=== PATIENT | female | born 2000 | race American Indian/Alaskan Native ===

== ENCOUNTER 2021-01-02 10:59 | Emergency (ER) | payer OTHER ==
[2021-01-02] MEDS ORDERED: Alum Hydroxide/Mag Hydroxide 15 ML, Lidocaine 2% 15 ML PO ONE ×4 (11:22→12:02)
--- NOTE | 2021-01-02 11:26 | EDM.PDOC ---
ED HPI GENERAL MEDICAL PROBLEM - General Chief Complaint: Abdominal Pain Stated Complaint: STOMACH ACHE Time Seen by Provider: 01/02/21 11:19 Source of Information: Reports: Patient History Limitations: Reports: No Limitations - History of Present Illness INITIAL COMMENTS - FREE TEXT/NARRATIVE: Patient awoke this morning with epigastric pain associated with N/V. Emesis was biliary, denies hematemesis. Patient admits to taking eight Midol tablets all at once at 12 midnoc in an effort to relieve menstrual cramps. She denies recent alcohol consumption. No prior history of abdominal surgeries. Onset: Today Location: Reports: Abdomen Severity: Mild ABDOMEN Pain Score (Numeric/FACES): 6 - Related Data Allergies Allergy/AdvReac Type Severity Reaction Status Date / Time No Known Allergies Allergy Verified 01/02/21 11:19 Home Meds: Home Meds Pantoprazole Sodium [Protonix] 40 mg PO DAILY #14 tablet. 01/02/21 [Rx] ondansetron HCL [Zofran] 4 mg PO Q8H #10 tablet 01/02/21 [Rx] Past Medical History - Past Health History Medical/Surgical History: Denies Medical/Surgical History Social & Family History - Tobacco Use Tobacco Use Status *Q: Current Every Day Tobacco User Tobacco Use Within Last Twelve Months: Cigarettes - Alcohol Use Alcohol Use History: Yes Alcohol Use Frequency: Rarely ED ROS GENERAL - Review of Systems Review Of Systems: Comprehensive ROS is negative, except as noted in HPI. ED EXAM, GI/ABD - Physical Exam Exam: See Below Exam Limited By: No Limitations General Appearance: Alert, WD/WN, No Apparent Distress Throat/Mouth: No Airway Compromise Head: Atraumatic, Normocephalic Neck: Full Range of Motion Respiratory/Chest: No Respiratory Distress, Lungs Clear, Normal Breath Sounds Cardiovascular: Regular Rate, Rhythm, No Murmur GI/Abdominal Exam: Normal Bowel Sounds, Soft, Tender (epigastric and LLQ) Back Exam: Full Range of Motion Extremities: Normal Range of Motion Neurological: Alert, Normal Cognition Psychiatric: Normal Affect, Normal Mood Skin Exam: Warm, Dry, Intact Course - Vital Signs Last Recorded V/S: Last Vital Signs Temp 37.0 C 01/02/21 11:00 Pulse 88 01/02/21 11:00 Resp 18 01/02/21 11:00 BP 123/64 01/02/21 11:00 Pulse Ox 100 02/13/21 11:00 - Orders/Labs/Meds Labs: Laboratory Tests 01/02/21 01/02/21 01/02/21 Range/Units 11:13 11:13 11:32 WBC 7.7 (3.0-10.3) x10-3/uL RBC 4.11 (3.60-5.20) x10(6)uL Hgb 11.7 (11.4-15.5) g/dL Hct 36.5 (34.2-48.2) % MCV 89.0 (76.7-100.5) fL MCH 28.4 (23.9-33.9) pg MCHC 32.0 (31.9-34.8) g/dL RDW 15.7 (12.3-16.5) % Plt Count 276 (151-488) x10(3)uL MPV 8.9 (7.1-12.4) fL Neut % (Auto) 82.3 H (30.8-76.2) % Lymph % (Auto) 11.3 L (18.4-52.1) % [place] % (Auto) 5.2 (4.4-15.7) % Eos % (Auto) 0.8 (0.6-8.1) % Baso % (Auto) 0.4 (0.2-1.5) % Neut # (Auto) 6.3 (1.5-6.3) x10-3/uL Lymph # (Auto) 0.9 L (1.0-4.4) x10-3/uL [place] # (Auto) 0.4 (0.3-1.0) x10-3/uL Eos # (Auto) 0.1 (0.0-0.8) x10-3/uL Baso # (Auto) 0.0 (0.0-0.1) x10-3/uL Sodium (135-145) mmol/L Potassium (3.5-5.3) mmol/L Chloride (100-110) mmol/L Carbon Dioxide (21-32) mmol/L BUN (7-18) mg/dL Creatinine (0.55-1.02) mg/dL Est Cr Clr Drug Dosing Estimated GFR (MDRD) (>60) BUN/Creatinine Ratio (9-20) Glucose (80-116) mg/dL Calcium (8.2-10.1) mg/dL Total Bilirubin (0.1-1.2) mg/dL AST (5-25) IU/L ALT (12-36) U/L Alkaline Phosphatase (56-112) IU/L Total Protein (6.0-8.0) g/dL Albumin (3.2-4.5) g/dL Globulin g/dL Albumin/Globulin Ratio Lipase (73-393) U/L Urine Color Red (YELLOW) Urine Appearance Cloudy (CLEAR) Urine pH 5.0 (5.0-6.5) Ur Specific [place] 1.025 (1.010-1.025) Urine Protein Trace (NEGATIVE) mg/dL Urine Glucose (UA) Normal (NORMAL) mg/dL Urine Ketones Negative (NEGATIVE) mg/dL Urine Occult Blood Large H (NEGATIVE) Urine Nitrite Negative (NEGATIVE) Urine Bilirubin Negative (NEGATIVE) Urine Urobilinogen Normal (NEGATIVE) mg/dL Ur Leukocyte Esterase Small H (NEGATIVE) Urine RBC Packed H (0-5) Urine HCG, Qual Negative (NEGATIVE) 01/02/21 01/02/21 Range/Units 11:32 11:32 WBC (3.0-10.3) x10-3/uL RBC (3.60-5.20) x10(6)uL Hgb (11.4-15.5) g/dL Hct (34.2-48.2) % MCV (76.7-100.5) fL MCH (23.9-33.9) pg MCHC (31.9-34.8) g/dL RDW (12.3-16.5) % Plt Count (151-488) x10(3)uL MPV (7.1-12.4) fL Neut % (Auto) (30.8-76.2) % Lymph % (Auto) (18.4-52.1) % [place] % (Auto) (4.4-15.7) % Eos % (Auto) (0.6-8.1) % Baso % (Auto) (0.2-1.5) % Neut # (Auto) (1.5-6.3) x10-3/uL Lymph # (Auto) (1.0-4.4) x10-3/uL [place] # (Auto) (0.3-1.0) x10-3/uL Eos # (Auto) (0.0-0.8) x10-3/uL Baso # (Auto) (0.0-0.1) x10-3/uL Sodium 140 (135-145) mmol/L Potassium 3.1 L (3.5-5.3) mmol/L Chloride 103 (100-110) mmol/L Carbon Dioxide 24 (21-32) mmol/L BUN 6 L (7-18) mg/dL Creatinine 0.8 (0.55-1.02) mg/dL Est Cr Clr Drug Dosing TNP Estimated GFR (MDRD) > 60 (>60) BUN/Creatinine Ratio 7.5 L (9-20) Glucose 135 H (80-116) mg/dL Calcium 8.6 (8.2-10.1) mg/dL Total Bilirubin 0.5 (0.1-1.2) mg/dL AST 13 (5-25) IU/L ALT 16 (12-36) U/L Alkaline Phosphatase 81 (56-112) IU/L Total Protein 8.0 (6.0-8.0) g/dL Albumin 4.4 (3.2-4.5) g/dL Globulin 3.6 g/dL Albumin/Globulin Ratio 1.2 Lipase 81 (73-393) U/L Urine Color (YELLOW) Urine Appearance (CLEAR) Urine pH (5.0-6.5) Ur Specific [place] (1.010-1.025) Urine Protein (NEGATIVE) mg/dL Urine Glucose (UA) (NORMAL) mg/dL Urine Ketones (NEGATIVE) mg/dL Urine Occult Blood (NEGATIVE) Urine Nitrite (NEGATIVE) Urine Bilirubin (NEGATIVE) Urine Urobilinogen (NEGATIVE) mg/dL Ur Leukocyte Esterase (NEGATIVE) Urine RBC (0-5) Urine HCG, Qual (NEGATIVE) Meds: Medications Discontinued Medications Generic Name Dose Route Start Last Admin Trade Name Freq PRN Reason Stop Dose Admin Al Hydroxide/Mg Hydroxide 15 0 ml 01/02/21 11:22 01/02/21 11:27 ml/ Lidocaine HCl 15 ml PO 01/02/21 11:23 30 ml ONETIME ONE Administration Al Hydroxide/Mg Hydroxide 15 0 ml 01/02/21 12:02 ml/ Lidocaine HCl 15 ml PO 01/02/21 12:03 ONETIME ONE Ondansetron HCl 8 mg 01/02/21 11:27 01/02/21 11:32 Zofran Odt PO 01/02/21 11:28 8 mg ONETIME ONE Administration - Re-Assessments/Exams Free Text/Narrative Re-Assessment/Exam: 01/02/21 12:10 Patient had immediate emesis after the first GI cocktail (prior to Zofran). Departure - Departure Time of Disposition: 12:10 Disposition: Home, Self-Care 01 Condition: Good Clinical Impression: Dyspepsia - Discharge Information *PRESCRIPTION DRUG MONITORING PROGRAM REVIEWED*: No *COPY OF PRESCRIPTION DRUG MONITORING REPORT IN PATIENT TYE: Not Applicable Prescriptions: Pantoprazole Sodium [Protonix] 40 mg PO DAILY #14 tablet. ondansetron HCL [Zofran] 4 mg PO Q8H #10 tablet Instructions: Indigestion, [id number], Abdominal Pain, Adult, [id number], Nausea and Vomiting, Adult, [id number] Forms: ED Department Discharge Additional Instructions: Fill the prescriptions for Protonix and Zofran at [facility] in [place]. Avoid alcohol. Do not take more Midol than directed on the bottle. Follow up if symptoms don't improve in 2 days, sooner if symptoms worsen. Sepsis Event Note (ED) - Focused Exam Vital Signs: Vital Signs Temp Pulse Resp BP Pulse Ox 01/02/21 11:00 37.0 C 88 18 123/64 100
[2021-01-02] MEDS ORDERED: Ondansetron 8 MG Tab.DIS PO ONE (11:27)
== END 2021-01-02 12:15 | disposition home or self-care (01) ==
LOC: FB.ED 10:59
DX: R10.13 Epigastric pain (principal); Z72.0 Tobacco use; Z79.899 Other long term (current) drug therapy
CPT/HCPCS: 36415; 80053; 81001; 81025; 83690; 85025; 99283; 99284; A9270-GY